=== PATIENT | male | born 1950 | race Caucasian/White ===

== ENCOUNTER → 2017-09-12 | Outpatient (CLI) | payer OTHER, MEDICARE ==
[2017-09-12 09:28] LABS: BASO % 0.6 %; BASO ABS # 0.04 K/uL (0-0.2); COMPLETE YES; EOS % 3.5 %; HEMATOCRIT 44.3 % (42-52); IG% 0.2 %; LYMPH % 34.7 %; LYMPH ABS # 2.29 K/uL (1.2-3.4); MEAN CELL VOLUME 91.5 fL (80-100); MEAN CORPUSCULAR HEMOGLOBIN 29.8 pg (25-34); MEAN CORPUSCULAR HGB CONC 32.5 g/dl (32-36); MEAN PLATELET VOLUME 10.1 fL (7.4-10.4); MONO % 8.2 %; NEUT % 52.8 %; PLATELET COUNT 186 K/uL (130-400); RED BLOOD COUNT 4.84 M/uL (4.7-6.1); WHITE BLOOD COUNT 6.59 K/uL (4.8-10.8)
[2017-09-12 09:40] LABS: ESTIMATED AVERAGE GLUCOSE 120 mg/dl; HA1C FLAG Normal (Normal)
[2017-09-12 09:43] LABS: ALT/SGPT 43 U/L (12-78); AST/SGOT 24 U/L (15-37); BLOOD UREA NITROGEN 18 mg/dl (7-18); CALCIUM 8.8 mg/dl (8.5-10.1); CARBON DIOXIDE 29 mmol/L (21-32); CHLORIDE 104 mmol/L (98-107); CREATININE 1.22 mg/dl (0.60-1.40); GLUCOSE 101 mg/dl (70-99); POTASSIUM 4.4 mmol/L (3.5-5.1); SODIUM 139 mmol/L (136-145)
[2017-09-12 09:46] LABS: ALKALINE PHOSPHATASE 70 U/L (45-117)
== END ==
LOC: C.LABVPSUA 09:09
PROVIDERS: ATTEND Internal Medicine Critical Care Medicine
DX: E11.9 Type 2 diabetes mellitus without complications (principal); N28.9 Disorder of kidney and ureter, unspecified; D64.9 Anemia, unspecified

== ENCOUNTER 2025-04-30 05:55 | Observation (INO) ==
--- NOTE | 2025-04-01 11:22 | PAT Medication Instructions ---
Medication Instructions Date of Service April 01, 2025 Home Medications Medication Instructions Recorded CPAP Machine #1 ea 06/12/19 lisinopril 20 mg tablet 20 mg PO QAM metformin 500 mg tablet 500 mg PO BID atorvastatin 20 mg tablet (Lipitor) 20 mg PO QPM doxycycline hyclate 200 mg tablet,delayed release 200 mg PO BID amlodipine 5 mg tablet 5 mg PO QAM ivermectin 1 % topical cream 1 applic topical QAM STOP taking 24 hours before surgery ivermectin 1 % topical cream 1 applic topical QAM DO NOT take the morning of surgery lisinopril 20 mg tablet 20 mg PO QAM metformin 500 mg tablet 500 mg PO BID Take morning of surgery With a small sip of water, OTHERWISE NOTHING TO EAT OR DRINK AFTER MIDNIGHT: doxycycline hyclate 200 mg tablet,delayed release 200 mg PO BID amlodipine 5 mg tablet 5 mg PO QAM Take evening before surgery metformin 500 mg tablet 500 mg PO BID atorvastatin 20 mg tablet (Lipitor) 20 mg PO QPM doxycycline hyclate 200 mg tablet,delayed release 200 mg PO BID Other Notes If you have any questions please call us at [phone] or [phone] or [phone] or [phone]
--- NOTE | 2025-04-03 09:03 | Anesthesiology Consultation ---
Date of Service April 03, 2025 Assessment & Plan (1) Encounter for pre-operative examination: - Check BSG DOS - Infectious disease screening: Per assessment on 04/03/25- No known recent infectious disease contacts or current infectious disease symptoms. - LBBB on preop EKG. Patient will need preop cardiac evaluation arranged (patient aware/requesting [facility] cardio). Patient otherwise acceptable risk for surgery. Chart Review Chart Review: Patient seen in Pre Admission Testing Teaching & Discussion Pre-Anesthesia Teaching/Discussion Notes: Instructed NPO after midnight before surgery,except medications with 15 cc of water. Medication instructions provided according to the PAT guidelines. History Surgery Operation Date: 04/30/25 07:15 Proposed Procedures p L4-5, L5-S1 Laminectomy - Ryan Amor MD Height/Weight Height: 5 ft 8 in Weight: 147.1 kg Allergies Allergy/AdvReac Type Severity Reaction Status Date / Time No Known Drug Allergies Allergy Unknown Verified 03/29/25 15:38 Medications Home Medications Medication Instructions Recorded Confirmed Last Taken lisinopril 20 mg tablet 20 mg PO QAM 08/17/18 03/29/25 08/25/22 07:30 CPAP Machine #1 ea 06/12/19 03/06/25 Unknown metformin 500 mg tablet 500 mg PO BID 09/27/23 03/29/25 Unknown atorvastatin 20 mg tablet (Lipitor) 20 mg PO QPM 12/06/23 03/29/25 Unknown doxycycline hyclate 200 mg 200 mg PO BID 03/06/25 03/29/25 Unknown tablet,delayed release amlodipine 5 mg tablet 5 mg PO M 03/29/25 03/29/25 Unknown ivermectin 1 % topical cream 1 applic topical [facility] 03/29/25 03/29/25 Unknown Past Medical History Medical History (Updated 04/03/25 @ 12:29 by Martha Andrews) Chronic back pain Diabetes mellitus, type 2 NIDDM H/O vertigo No current/recent issues Hx of gout Hx of spinal stenosis Hx of tinnitus Hypertension Kidney stones Hx, passed on own Lumbar stenosis with neurogenic claudication Hx Sleep apnea CPAP (compliant) Exercise / Class Metabolic Activity III < 4 Walking/Shop/Light housework Past Family History Family History Father Aortic aneurysm of unspecified site, ruptured Diabetes Mother Cancer Other Obstructive sleep apnea Past Surgical History Surgical History H/O sinus surgery 2018 History of adenoidectomy History of arthroscopy (2010) Left knee History of cataract surgery R/L History of cholecystectomy (1987) History of colonoscopy (2016) History of tonsillectomy Hx of myringoplasty (2023) Left ear, paper patch placed Hx of myringotomy (2017) Left ear Past Anesthesia History No Hx of Anesthesia Complications and No Family Hx of Anesthesia Complications History of PONV No Hx of PONV and No Hx of Motion Sickness Social History Smoking Status: Never smoker Do You Dip or Chew Tobacco: No Hx Alcohol Use: No Hx Substance Use: No substance use type: does not use Review of Systems Patient denies chest pain, shortness of breath, fever, chills, cough, wheezing. Physical Exam Vital Signs BP 135/82 P 70 TEMP 98.0 SP02 95%RA RESP 18 Physical Full cervical extension range of motion. Full TMJ range of motion. TMD 3 finger breaths Mallampati Score III Dentition: intact, + crown Lungs: clear throughout to auscultation Cardiac: regular rate and rhythm, no murmurs noted Spine: normal Carotid arteries: negative bruit Extremities: trace LE edema Thick neck Lab Results Anesthesia Preop Results Results Anesthesia Widget: WBC 6.47 K/ul (4.8-10.8) 04/03/25 Hgb 13.3 g/dl (14.0-18.0) L 04/03/25 Hct 40.3 % (42.0-52.0) L 04/03/25 Plt 169 K/uL (130-400) 04/03/25 Na 138 mmol/L (136-145) 04/03/25 K 4.2 mmol/L (3.5-5.1) 04/03/25 Cl 105 mmol/L (98-107) 04/03/25 CO2 26 mmol/L (21-32) 04/03/25 BUN 16 mg/dl (6-23) 04/03/25 Creat 0.98 mg/dl (0.6-1.4) 04/03/25 Glucose Level 129 mg/dl (70-99(Fasting)) H 04/03/25 PT 12.8 Seconds (9.0-12.0) H 04/03/25 PTT 28 Seconds (21-31) 04/03/25 INR 1.2 (0.9-1.1) H 04/03/25 HA1c 6.6 % (4.5-5.6) H 04/03/25 Blood Type A Positive 04/03/25 Antibody Screen NEGATIVE 04/03/25 Testing Electrocardiogram Date: 04/03/25 NSR at 74bpm. LBBB. Chest X-Ray Date: 04/03/25 FINDINGS: Heart size and pulmonary vasculature are normal. No effusion, consolidation, or pneumothorax. Stable few small pulmonary nodules. IMPRESSION: No acute findings. Stress Test Date: 08/10/22 Type: DSE Negative DSE/stress ECG for myocardial ischemia at 95% MPRE. No dobutamine induced chest pain. Rest Echo with normal biventricular systolic function, mild LVH, borderline LAD, trace TR.
[2025-04-30] MEDS: LR 60ML/HR IV SCH (06:31)
[2025-04-30] MEDS: LR 15ML/HR IV SCH (06:31)
[2025-04-30] MEDS: ACETAMINOPHEN 500 MG TAB PO SCH (06:31)
[2025-04-30] MEDS ORDERED: ATROPINE SULFATE 0.1 MG/ML 10ML SYR IV PRN (06:55)
[2025-04-30] MEDS ORDERED: ONDANSETRON INJ 2 MG/ML 2 ML VIAL IV PRN ×2 (06:55→10:42)
[2025-04-30] MEDS ORDERED: DEXAMETHASONE SOD INJ 4 MG/ML VIAL ONE (07:00)
[2025-04-30] MEDS ORDERED: ROCURONIUM BROMIDE 10 MG/ML 5 ML VIAL IV ONE (07:00)
[2025-04-30] MEDS ORDERED: ONDANSETRON INJ 2 MG/ML 2 ML VIAL ONE (07:00)
[2025-04-30] MEDS ORDERED: MIDAZOLAM HCL 1 MG/ML 2ML VIAL ONE (07:00)
[2025-04-30] MEDS ORDERED: LIDOCAINE 2% 2 ML VIAL/AMP(20MG/ML) INFIL ONE (07:00)
[2025-04-30] MEDS ORDERED: PROPOFOL IV EMULSION 10 MG/ML 20 ML VIAL IV ONE ×2 (07:00→07:19)
--- NOTE | 2025-04-30 07:19 | History & Physical Bridge Note ---
Date of Service April 30, 2025 History & Physical Bridge Note I have examined the patient, reviewed the History & Physical and in the interval since the performance of the History & Physical I have noted the following changes of clinical significance: no changes noted
--- NOTE | 2025-04-30 07:21 | History & Physical Report ---
Date of Service April 30, 2025 History of Present Illness Chief Complaint: low back, leg pain Primary Care Provider: Shant Jha MD Patient returns for follow-up, he was evaluated for low back and leg pain bi lateral, more so on the left, he has noted that with the taper dose steroids in the beginning with the higher dose it was helpful for symptoms but fortunately did give him elevated blood pressure and some change in his blood sugars. He is now status post his MRI from February 25 and is here for review and discussion. No new changes regarding exam pain indicated in the same areas as noted before. 2 views lumbar spine AP and lateral views taken at today's office reveal the spine to be unremarkable on the AP view normal alignment, hip joints maintained joint space, he has on lateral view normal lordosis, the only level showing some loss of disc base height and degeneration is the L5-S1 level. Review of MRI images from lumbar spine from [facility] from February 25, 2025, this my separate interpretation, this reveals the discs to be unremarkable at all levels left L5-S1 where there is notable loss of disc base height degenerative changes and Modic changes, there is a slight disc protrusion broad- based across that level. He has no notable findings at L3-4 and above, L4-5 as a combination of a very minimal disc bulge along with some facet arthrosis causing severe stenosis centrally but not to any significant degree foraminally except on the left some moderate narrowing, similar at L5-S1, there is a broad- based disc bulging and facet arthrosis. Impression: Combination of lumbar stenosis L4-5 and L5-S1. Plan: Today I reviewed the images with the patient both her x-rays and the MRI went over these in detail. We reviewed with the patient all the treatment options including continued anti-inflammatories, physical therapy, pain management and potential surgery. For surgery I would recommend a two-level decompression at L4-5 and L5-S1, this would include trying to work on the left foramens to some degree, but also the broad-based disc bulge at L5-S1, and open the channel which I think would help with some limited improvement in both his back pain and his leg pain. I emphasized that I do not think this will take away all his symptoms but it should help with at least a portion of them. As neither of the levels is showing any instability on not recommending any arthrodesis, and I did review the hospital postoperative course, activity levels, management of the incision, potential risk complications including but not exclusive chances of infection, neurologic injury, risk from anesthesia and medical risks, noting to him that with increased weight and diabetes there is a slight increase in terms of chances of infection. I did review the patient would be appropriate for undergoing pain management injections but he declined on this, we will work to get him scheduled. Allergies Allergy/AdvReac Type Severity Reaction Status Date / Time No Known Drug Allergies Allergy Unknown Verified 04/30/25 06:11 Home Medications Medication Instructions Recorded Confirmed Type lisinopril 20 mg tablet 20 mg PO QAM 08/17/18 04/30/25 History CPAP Machine #1 ea 06/12/19 04/10/25 Rx metformin 500 mg tablet 500 mg PO BID 09/27/23 04/30/25 History atorvastatin 20 mg tablet (Lipitor) 20 mg PO QPM 12/06/23 04/30/25 History doxycycline hyclate 200 mg 200 mg PO BID 03/06/25 04/30/25 History tablet,delayed release amlodipine 5 mg tablet 5 mg PO QAM 03/29/25 04/30/25 History ivermectin 1 % topical cream 1 applic topical QAM 03/29/25 04/30/25 History acetaminophen 325 mg tablet 975 mg PO QID PRN Pain 04/30/25 04/30/25 History (Tylenol) Past Med/Surg History Problem List Left bundle branch block Lumbar stenosis with neurogenic claudication Lumbar radiculopathy Disc degeneration, lumbosacral Elevated PSA Type 2 diabetes mellitus Encounter for pre-operative examination Family history of aortic aneurysm Allergic rhinitis due to mold Allergic rhinitis due to animal dander Non-allergic rhinitis Acquired deviated nasal septum Chronic otitis media of left ear Allergic rhinitis Sensorineural hearing loss of both ears Tinnitus, bilateral chronic Mixed hearing loss, bilateral bilateral hearing aids Nocturnal hypoxemia Obstructive sleep apnea Osteoarthritis Spinal stenosis Hypertension Medical History Lumbar stenosis with neurogenic claudication Hx Hx of spinal stenosis Hx of tinnitus Diabetes mellitus, type 2 NIDDM Hx of gout Hypertension Sleep apnea CPAP (compliant) H/O vertigo No current/recent issues Chronic back pain Kidney stones Hx, passed on own Surgical History Hx of myringotomy (2017) Left ear Hx of myringoplasty (2023) Left ear, paper patch placed History of cataract surgery R/L H/O sinus surgery 2018 History of cholecystectomy (1987) History of arthroscopy (2010) Left knee History of colonoscopy (2016) History of tonsillectomy History of adenoidectomy Family History Father Aortic aneurysm of unspecified site, ruptured Diabetes Mother Cancer Other Obstructive sleep apnea Social History Smoking Status: Never smoker Second Hand Exposure: Yes (hx as child); Do You Dip or Chew Tobacco: No; Tobacco Cessation Education Requested by Patient: No Hx Alcohol Use: No Hx Substance Use: No Preferred Language: Frisian Communication Ability: Effective Visual Impairment: No Limitations Compensation Director Required: No Beliefs That Will Affect Care: None marital status: / Current Living Situation: Other Current Living Situation Comment: [facility] How many Children do You have: 3 Other Information That Helps Us Care for You: No Feels Safe at Home: Yes Safety Concerns: Feels Safe At This Time Diet: diabetic during the past year weight has: decreased > 10 lbs Assistive Devices: CPAP and Hearing Aid - Bilateral Review of Systems All systems reviewed & are unremarkable except as noted in HPI & below. Physical Exam . Results & Data Results & Data Laboratory Results . Diagnostic Findings . PG Care Time/CCT Total # of Minutes Spent Total Time Spent with Patient: Total time spent is greater than 50% in coordination of care (as documented) at patient's floor/unit and/or counseling patient: Coding Level of Care Code 90302 INT INP/OBS CARE 1/40MIN
[2025-04-30] MEDS ORDERED: PHENYLEPHRINE HCL 10 MG/ML VIAL ONE (08:00)
[2025-04-30] MEDS ORDERED: PHENYLEPHRINE 100MCG/ML 5ML SYR ONE (08:00)
[2025-04-30] MEDS: ceFAZolin 3000MG 3,000 MG/72.5 ML BAG IV SCH (08:00)
[2025-04-30] MEDS ORDERED: KETAMINE HCL 10MG/ML SYR ONE (08:10)
[2025-04-30] MEDS ORDERED: ACETAMINOPHEN 1000 MG/100 ML IV IV ONE (08:26)
[2025-04-30] MEDS: VANCOMYCIN HCL 1000MG/20ML VIAL ONE (10:07)
[2025-04-30] MEDS: FLOSEAL HEMOSTATIC MATRIX 10ML TOP ONE (10:07)
[2025-04-30] MEDS: BUPIVACAINE/EPINEPHRINE 0.5% MPF 1:200,000 30 ML VIAL ONE (10:08)
[2025-04-30] MEDS: TRANEXAMIC ACID / 0.7% NACL 1000MG/100ML BAG IV ONE (10:15)
[2025-04-30] MEDS ORDERED: KETOROLAC 30 MG/ML VIAL ONE (10:16)
[2025-04-30] MEDS ORDERED: SUGAMMADEX SODIUM 200 MG/2 ML VIAL IV ONE ×2 (10:16→10:23)
--- NOTE | 2025-04-30 10:33 | Post Operative Brief Note ---
PG Immediate Post Op with CF Date of Surgery April 30, 2025 Pre & Post Diagnosis Operation Date: 04/30/25 07:30 Pre-Op Diagnosis: (1) Disc degeneration, lumbosacral (2) Lumbar radiculopathy (3) Low back pain radiating to left lower extremity (4) Lumbar stenosis with neurogenic claudication Post-Op Diagnosis: (1) Disc degeneration, lumbosacral (2) Lumbar radiculopathy (3) Low back pain radiating to left lower extremity (4) Lumbar stenosis with neurogenic claudication I identified the patient and participated in the time-out.: Yes Procedure Operation Date: 04/30/25 07:30 Actual Procedures p L4-L5, L5-S1 Laminectomy(Not Applicable) - Ryan Amor MD Surgeon Ryan Amor MD Industrial Psychologist none Estimated Blood Loss 100 Findings Consistent with Post-Op Diagnosis Specimens Specimen Description: None per surgeon Drains Chris Catheter (16 fr catheter inserted without difficulty draining clear yellow urine )
[2025-04-30] MEDS ORDERED: ACETAMINOPHEN 1,000 MG/100 ML VIAL IV PRN (10:42)
[2025-04-30] MEDS ORDERED: MAGNESIUM HYDROXIDE SUSP 30 ML UDC PO PRN (10:42)
[2025-04-30] MEDS ORDERED: PROMETHAZINE 12.5 MG/50.5 ML BAG IV PRN (10:42)
[2025-04-30] MEDS ORDERED: NALOXONE HCL 0.4 MG/1 ML VIAL/CARP IV PRN (10:42)
[2025-04-30] MEDS ORDERED: DO NOT ADMINISTER PNEUMOCOCCAL VACCINE PRN (10:42)
[2025-04-30] MEDS ORDERED: HYDROmorphone INJ 1 MG/ML SYRINGE IV PRN (10:42)
[2025-04-30] MEDS ORDERED: HYDROmorphone INJ 0.5 MG/0.5 ML SYR IV PRN (10:42)
[2025-04-30] MEDS ORDERED: ONDANSETRON 4 MG OD TAB PO PRN (10:42)
[2025-04-30] MEDS ORDERED: LORazepam 0.5 MG TAB PO PRN (10:42)
[2025-04-30] MEDS ORDERED: FAMOTIDINE 20 MG TAB PO PRN (10:42)
[2025-04-30] MEDS ORDERED: diphenhydrAMINE Capsule 25 MG CAP PO PRN (10:42)
[2025-04-30] MEDS ORDERED: METOCLOPRAMIDE HCL INJ 5 MG/ML 2 ML VIAL IV PRN (10:42)
[2025-04-30] MEDS ORDERED: ALUMINUM/MAGNESIUM SUSP 30 ML UDC PO PRN (10:42)
[2025-04-30] MEDS ORDERED: DO NOT ADMINISTER FLU VACCINE PRN (10:42)
[2025-04-30] MEDS ORDERED: SOD PHOSPHATE/SOD BIPHOSPHATE ENEMA 132 ML BTL PR PRN (10:42)
[2025-04-30] MEDS ORDERED: PHARMACY GLYCEMIC MGMT CONSULT PRN (10:47)
--- NOTE | 2025-04-30 11:00 | Fluoroscopy Report ---
FL lumbar spine 2-3V CLINICAL HISTORY: L4-L5, L5-S1 LAMINECTOMY COMPARISON STUDY: None FLUOROSCOPY TIME: 29 seconds FLUOROSCOPY IMAGES: 4 EXPOSURE DOSE: 45 mGy FINDINGS: Fluoroscopy was provided for lower lumbar surgery. IMPRESSION: Intraoperative fluoroscopy. ACT 112: Negative or not required by law. Electronically signed by: Huber King M.D. 04/30/2025 10:59 AM
[2025-04-30] MEDS: HYDROmorphone INJ 1 MG/ML SYRINGE IV PRN (11:20)
[2025-04-30] MEDS ORDERED: CARBOHYDRATES FOR HYPOGLYCEMIA PO PRN (12:00)
[2025-04-30] MEDS ORDERED: DEXTROSE 50% 50 ML SYRINGE IV PRN (12:00)
[2025-04-30] MEDS ORDERED: GLUCOSE 10 TAB/TUBE PO PRN (12:00)
[2025-04-30] MEDS ORDERED: GLUCAGON FOR INJ 1 MG VIAL SQ PRN (12:00)
[2025-04-30] MEDS ORDERED: GLUCOSE 40% GEL 15 GM TUBE PO PRN (12:00)
--- NOTE | 2025-04-30 12:40 | Anesthesiology Progress Note ---
Date of Service April 30, 2025 Anesthesia Post Procedure Vital Signs Vital Signs: Temp Pulse Pulse Resp BP Pulse Ox O2 Del Method 04/30/25 12:30 36.6 C 87 18 160/80 H 93 Room Air 04/30/25 12:12 86 12 132/84 96 Nasal Cannula 04/30/25 11:55 84 12 141/76 H 96 Nasal Cannula 04/30/25 11:40 36.4 C L 83 12 147/76 H 95 Nasal Cannula 04/30/25 11:30 82 12 129/78 95 Nasal Cannula 04/30/25 11:20 84 14 152/75 H 96 Nasal Cannula 04/30/25 11:10 83 14 134/75 96 Oxymask 04/30/25 11:00 81 13 147/75 H 97 Oxymask 04/30/25 10:50 83 15 153/73 H 97 Oxymask 04/30/25 10:44 36.6 C 87 12 143/58 H 94 Oxymask 04/30/25 06:34 Room Air 04/30/25 06:15 37.1 C 79 22 178/94 H 94 Room Air O2 Flow Rate 04/30/25 12:30 04/30/25 12:12 3 04/30/25 11:55 3 04/30/25 11:40 3 04/30/25 11:30 3 04/30/25 11:20 3 04/30/25 11:10 6 04/30/25 11:00 6 04/30/25 10:50 8 04/30/25 10:44 8 04/30/25 06:34 04/30/25 06:15 Pain Intensity Lower Back: Pain Intensity: 3 Back: Pain Intensity: 4 Transfer of Care Handoff Completed per policy Notes Mental Status: alert / awake / arousable Patient Amnestic to Procedure: Yes Nausea / Vomiting: adequately controlled Pain: adequately controlled Airway Patency, RR, SpO2: stable & adequate BP & HR: stable & adequate Hydration State: stable & adequate Anesthetic Complications: no major complications apparent and Pt Satisfied with anesthetic care
--- NOTE | 2025-04-30 12:59 | Pharmacy Report ---
Pharmacy Glycemic Short Note 2 - Date of Service April 30, 2025 - Glycemic Short BSG Results (Last 24 hours): 04/30/25 04/30/25 04/30/25 06:22 10:48 12:46 POC Glucose 126 H 198 H 194 H OUTPATIENT ANTIDIABETIC REGIMEN: * metformin 1 g PO BIDM HbA1c: 6.6% (04/03/25) ASSESSMENT: * BW is a 74 year old male POD #0 s/p laminectomy * Received 8 mg IV dexamethasone in OR * No ongoing steroids ordered at this time * Preop blood sugar of 126 mg/dL, postop blood sugar of 198 mg/dL PLAN FOR INPATIENT GLYCEMIC CONTROL: * Hold outpatient oral diabetes medications * Basal insulin * Lantus 35 units SC x 1 * Bolus insulin * NovoLog per scale ACHS or Q6hrs while NPO * Goal Range: Low 110 mg/dL - High 140 mg/dL * Correction Factor: 15 mg/dL/unit * Nutritional / Prandial insulin per carb ratio of 1 unit per 5 grams CHO consumed
--- NOTE | 2025-04-30 13:05 | Operative Report ---
PG Post Operative Report Pre & Post Diagnosis Operation Date: 04/30/25 07:30 Pre-Op Diagnosis: (1) Disc degeneration, lumbosacral (2) Lumbar radiculopathy (3) Low back pain radiating to left lower extremity (4) Lumbar stenosis with neurogenic claudication Post-Op Diagnosis: (1) Disc degeneration, lumbosacral (2) Lumbar radiculopathy (3) Low back pain radiating to left lower extremity (4) Lumbar stenosis with neurogenic claudication I identified the patient and participated in the time-out.: Yes Procedure Operation Date: 04/30/25 07:30 Actual Procedures p L4-L5, L5-S1 Laminectomy(Not Applicable) - Ryan Amor MD Surgeon Ryan Amor MD Video Arcade Manager none Estimated Blood Loss 100 Findings Consistent with Post-Op Diagnosis Specimens none Description of Procedure 1. L4-5 posterior lumbar decompression/laminectomy. (25353) 2. L5-S1 posterior lumbar decompression/laminectomy. (03881) Patient was taken to the operating room and after adequate anesthesia was carefully positioned prone on a Jonh frame, carefully checked for positioning. A preprepped was performed of the lumbar region followed by fluoroscopy brought in marking for the approximate location of the incision, prep and drape. A longitudinal incision was then made midline over the L4-5 and L5-S1 levels and then advanced down through the subcutaneous tissues, to either side of the spinous processes and advanced down to the lamina at L4-L5 and S1. Retractors were set, began the procedure with starting at the L5-S1 level with removal of the spinous process, and thinning of the thickened ligamentum flavum, high-speed bur was then utilized perform bilateral hemilaminectomies, partial medial facetectomies. The remainder of the ligamentum flavum was removed, the facets were undercut and the decompression was completed at this level for the L4-5 and S1 nerve roots. Moving to the L4-5 level, similar procedure was performed with bilateral decompressions via bilateral hemilaminectomies, partial medial facetectomies and foraminotomies, decompression the exiting L5 and L4 nerve roots. Upon completion both areas were decompressed, there is no evidence of any CSF leakage. Floseal was utilized for providing some hemostasis, along with bone wax. The operative site was irrigated with normal saline solution followed by placement of vancomycin powder, closure in 2 layers of 0 Vicryl sutures reattaching the supraspinous ligament were available, an additional layer of 2-0 Vicryl sutures and then jocelyne for the skin. Sterile dressing was applied, the patient tolerated the procedure well was taken to recovery room in satisfactory condition. I attest to the content of the Intraoperative Record and any orders documented therein. Any exceptions are noted below.
--- NOTE | 2025-04-30 13:09 | Hospitalist Consultation ---
Date of Consultation April 30, 2025 Assessment & Plan (1) Hypertension: (2) Type 2 diabetes mellitus: (3) Obstructive sleep apnea: (4) Lumbar stenosis with neurogenic claudication: Plan This patient is a 74-year-old male with a history of DM2, KIRILL on CPAP, HTN, OA, LBBB with recent normal Lexiscan stress test, kidney stones, elevated PSA, BPH, cough variant asthma, morbid obesity, rosacea, and lower back pain with lumbar radiculopathy who was admitted to the hospital for recovery postop from a L4-L5, L5-S1 laminectomy. #HTN/chronic LBBB/HLD-no acute issues, BPs are mildly elevated postoperatively perhaps secondary to pain. Found to have LBBB on preoperative ECG in 03/2025. Was seen by cardiology and had an echocardiogram which showed - Continue home amlodipine, and will hold home lisinopril until at least POD #1 to ensure renal function and BPs are stable - Follow BMP in the morning - Continue home atorvastatin - Monitor BPs #DM2, morbid obesity BMI 49.9-blood sugars are well-controlled and recent HgbA1c 6.6% in 03/2025. He only takes metformin at home - Pharmacy glycemic control consult was placed by primary surgery team and will manage his basal bolus insulin - Plan to restart metformin on discharge #KIRILL on CPAP/asthma-no acute issues - He can use his own CPAP or I will place an order for CPAP at 12 cm H2O as he does at home - No current wheezing and does not use any inhalers at home #History of kidney stone/elevated PSA/BPH-follows with urology, no acute issues - Monitor for urinary retention postoperatively #Rosacea-no acute issues -continue doxy 50 mg po bid -hold home ivermectin topica as doubt this is on our formulary #Lumbar radiculopathy/s/p lumbar laminectomy-postop management as per orthopedic surgery - He continues on a bowel regimen with senna/docusate and MiraLAX every 6 hours - Pain control is ordered with oxycodone and IV Dilaudid as well as acetaminophen as needed DVT prophylaxis-SCDs Disposition-continued stay medical/surgical unit, hospitalist service will follow along History of Present Illness Reason for Consultation: Postop medical management Requesting Physician: Ryan Amor MD Attending Physician: Ryan Amor MD History of Present Illness This patient is a 74-year-old male with a history of DM2, KIRILL on CPAP, HTN, OA, LBBB with recent normal Lexiscan stress test, kidney stones, elevated PSA, BPH, cough variant asthma, morbid obesity, rosacea, and lower back pain with lumbar radiculopathy who was admitted to the hospital for recovery postop from a L4-L5, L5-S1 laminectomy. Pt feels well post-op. He has some lower back pain, no LE pain. Narayan nausea, CP, SOB, abd pain. Feels like he needs to urinate. Allergies Allergy/AdvReac Type Severity Reaction Status Date / Time No Known Drug Allergies Allergy Unknown Verified 04/30/25 06:11 Home Medications Medication Instructions Recorded Confirmed Type lisinopril 20 mg tablet 20 mg PO QAM 08/17/18 04/30/25 History CPAP Machine #1 ea 06/12/19 04/10/25 Rx metformin 500 mg tablet 500 mg PO BID 09/27/23 04/30/25 History atorvastatin 20 mg tablet (Lipitor) 20 mg PO QPM 12/06/23 04/30/25 History amlodipine 5 mg tablet 5 mg PO QAM 03/29/25 04/30/25 History ivermectin 1 % topical cream 1 applic topical QAM 03/29/25 04/30/25 History acetaminophen 325 mg tablet 975 mg PO QID PRN Pain 04/30/25 04/30/25 History (Tylenol) doxycycline hyclate 50 mg capsule 50 mg PO BID 04/30/25 04/30/25 History Patient History Medical History (Updated 04/30/25 @ 14:06 by Elsa Jauregui MD) Rosacea Lumbar stenosis with neurogenic claudication Hx Hx of spinal stenosis Hx of tinnitus Diabetes mellitus, type 2 NIDDM Hx of gout Hypertension Sleep apnea CPAP (compliant) H/O vertigo No current/recent issues Chronic back pain Kidney stones Hx, passed on own Surgical History Hx of myringotomy (2017) Left ear Hx of myringoplasty (2023) Left ear, paper patch placed History of cataract surgery R/L H/O sinus surgery 2018 History of cholecystectomy (1987) History of arthroscopy (2010) Left knee History of colonoscopy (2017) History of tonsillectomy History of adenoidectomy Family History Father Aortic aneurysm of unspecified site, ruptured Diabetes Mother Cancer Other Obstructive sleep apnea Social History Smoking Status: Never smoker Second Hand Exposure: Yes (hx as child); Do You Dip or Chew Tobacco: No; Tobacco Cessation Education Requested by Patient: No Hx Alcohol Use: No Hx Substance Use: No Preferred Language: Irish Communication Ability: Effective Visual Impairment: No Limitations Deboning Team Leader Required: No Beliefs That Will Affect Care: None marital status: / Current Living Situation: Other Current Living Situation Comment: [facility] How many Children do You have: 3 Other Information That Helps Us Care for You: No Feels Safe at Home: Yes Safety Concerns: Feels Safe At This Time Diet: diabetic during the past year weight has: decreased > 10 lbs Assistive Devices: CPAP and Hearing Aid - Bilateral Review of Systems Review of Systems: All systems reviewed & are unremarkable except as noted in HPI & below Physical Exam Constitutional: WD/WN, vitals as above Eyes: PERRL, conjunctivae normal, anicteric sclerae ENMT: external ear and nose normal, oropharynx normal Neck: trachea midline, no thyromegaly Respiratory: normal respiratory effort, lungs clear to auscultation Cardiovascular: RRR, no murmur, no edema Chest (Breasts): Chest: normal inspection of chest Gastrointestinal (Abdomen): normal bowel sounds, soft, nontender, no hepatosplenomegaly Musculoskeletal: Extremities: extremities normal to inspection; no cyanosis and no clubbing Skin: no rashes, warm and dry Neurologic: moves all extremities and awake; no focal motor deficits Psychiatric: A+Ox3, euthymic affect Lymphatic: no lymphedema Results & Data Results & Data Vital Signs (Past 12 Hours) Vital Signs Temp Pulse Pulse Resp BP BP Pulse Ox 04/30/25 13:00 36.6 C 87 18 153/81 H 96 04/30/25 12:30 36.6 C 87 18 160/80 H 93 04/30/25 12:12 86 12 132/84 96 04/30/25 11:55 84 12 141/76 H 96 04/30/25 11:40 36.4 C L 83 12 147/76 H 95 04/30/25 11:30 82 12 129/78 95 04/30/25 11:20 84 14 152/75 H 96 04/30/25 11:10 83 14 134/75 96 04/30/25 11:00 81 13 147/75 H 97 04/30/25 10:50 83 15 153/73 H 97 04/30/25 10:44 36.6 C 87 12 143/58 H 94 04/30/25 06:34 04/30/25 06:15 37.1 C 79 22 178/94 H 94 O2 Del Method O2 Flow Rate 04/30/25 13:00 Nasal Cannula 2 04/30/25 12:30 Room Air 04/30/25 12:12 Nasal Cannula 3 04/30/25 11:55 Nasal Cannula 3 04/30/25 11:40 Nasal Cannula 3 04/30/25 11:30 Nasal Cannula 3 04/30/25 11:20 Nasal Cannula 3 04/30/25 11:10 Oxymask 6 04/30/25 11:00 Oxymask 6 04/30/25 10:50 Oxymask 8 04/30/25 10:44 Oxymask 8 04/30/25 06:34 Room Air 04/30/25 06:15 Room Air Laboratory Results Preoperative CBC, BMP, HgbA1c reviewed Diagnostic Findings Preoperative CXR, echocardiogram, and recent myocardial perfusion scan reviewed ECG Additional Comments: Preoperative ECG on 04/03/2025 at 9:22 AM with normal sinus rhythm, rate 74, LBBB new from previous PG Care Time/CCT Total # of Minutes Spent Total Time Spent with Patient: Total time spent is greater than 50% in coordination of care (as documented) at patient's floor/unit and/or counseling patient: Coding Level of Care Code 69064 IN/OBS CONSULT LVL 3,45M Diagnoses Hypertension I10 Type 2 diabetes mellitus E11.9 Obstructive sleep apnea G47.33 Lumbar stenosis with neurogenic claudication M48.062
[2025-04-30] MEDS: LANTUS PER UNIT CHARGE SC ONE (13:57)
[2025-04-30] MEDS: INSULIN ASPART PER UNIT CHARGE SC SCH (13:58)
[2025-04-30] MEDS ORDERED: ACETAMINOPHEN 80 MG CHEWABLE TAB PO PRN (17:15)
[2025-04-30] MEDS: ACETAMINOPHEN 500 MG TAB PO PRN (19:17)
[2025-04-30] MEDS: DOCUSATE SODIUM/SENNA 50/8.6MG TAB PO SCH (21:28)
[2025-04-30] MEDS: DOXYCYCLINE HYCLATE 50 MG CAP PO SCH (21:29)
[2025-04-30] MEDS: ATORVASTATIN 20 MG TAB PO SCH (21:29)
[2025-05-01] MEDS: POLYETHYLENE (MIRALAX) 17 GM PACK PO SCH (05:52)
[2025-05-01] MEDS: LANTUS PER UNIT CHARGE SC SCH (08:36)
--- NOTE | 2025-05-01 09:31 | Pharmacy Report ---
Pharmacy Glycemic Short Note 2 - Date of Service May 01, 2025 - Glycemic Short BSG Results (Last 24 hours): 04/30/25 04/30/25 04/30/25 10:48 12:46 16:31 POC Glucose 198 H 194 H 194 H 04/30/25 05/01/25 20:30 07:24 POC Glucose 197 H 143 H OUTPATIENT ANTIDIABETIC REGIMEN: * metformin 1 g PO BIDM HbA1c: 6.6% (04/03/25) ASSESSMENT: 05/01/25: * Blood sugars elevated postoperatively (ranging 194-198 mg/dL) * Received 69 units of insulin (~50/50 basal/bolus split) * No ongoing steroids ordered - will decrease basal today * Maintain aggressive Novolog parameters this AM and then loosen later today 04/30/25: * BW is a 74 year old male POD #0 s/p laminectomy * Received 8 mg IV dexamethasone in OR * No ongoing steroids ordered at this time * Preop blood sugar of 126 mg/dL, postop blood sugar of 198 mg/dL PLAN FOR INPATIENT GLYCEMIC CONTROL: * Hold outpatient oral diabetes medications * Basal insulin * Lantus 15 units SC daily * Bolus insulin * NovoLog per scale ACHS or Q6hrs while NPO * Goal Range: Low 110 mg/dL - High 140 mg/dL * Correction Factor: 25 mg/dL/unit * Nutritional / Prandial insulin per carb ratio of 1 unit per 8 grams CHO consumed
[2025-05-01 11:15] LABS: Hematocrit (blood only) 38.3 % (42.0-52.0); Hemoglobin 12.7 g/dl (14.0-18.0); Immature Granulocytes # (auto) 0.05 K/uL (0.01-0.20); Immature Granulocytes % (auto) 0.4 %; Mean Corpuscular Hemoglobin 29.1 pg (25.0-34.0); Mean Corpuscular Volume 87.8 fL (80.0-100.0); Platelet Count 219 K/uL (130-400); RDW Standard Deviation 47.7 fL (36.4-46.3); Red Blood Count 4.36 M/uL (4.70-6.10); White Blood Count 11.63 K/ul (4.8-10.8)
[2025-05-01 11:27] LABS: Anion Gap 7.0 (3-11); Blood Urea Nitrogen 18.0 mg/dl (6-23); Calcium 8.8 mg/dl (8.6-10.3); Carbon Dioxide 25.0 mmol/L (21-32); Chloride 102.0 mmol/L (98-107); Creatinine Clr Calc Pharmacy 96.6 ml/min; Glucose 138.0 mg/dl (70-99(Fasting)); Potassium 3.9 mmol/L (3.5-5.1); Sodium 134.0 mmol/L (136-145)
[2025-05-01 14:31] VITALS: RESP 18
--- NOTE | 2025-05-01 14:56 | Hospitalist Progress Note ---
Date of Service May 01, 2025 Assessment & Plan (1) Hypertension: (2) Type 2 diabetes mellitus: (3) Obstructive sleep apnea: (4) Lumbar stenosis with neurogenic claudication: Plan This patient is a 74-year-old male with a history of DM2, KIRILL on CPAP, HTN, OA, LBBB with recent normal Lexiscan stress test, kidney stones, elevated PSA, BPH, cough variant asthma, morbid obesity, rosacea, and lower back pain with lumbar radiculopathy who was admitted to the hospital for recovery postop from a L4-L5, L5-S1 laminectomy. #HTN/chronic LBBB/HLD-no acute issues, BPs are mildly elevated postoperatively perhaps secondary to pain. Found to have LBBB on preoperative ECG in 03/2025. Was seen by cardiology and had an echocardiogram which showed - Continue home amlodipine, and will resume lisinopril - Reviewed BMP today and it is unremarkable, Cr 0.9 - Continue home atorvastatin - Monitor BPs #DM2, morbid obesity BMI 49.9-blood sugars are well-controlled and recent HgbA1c 6.6% in 03/2025. He only takes metformin at home - Pharmacy glycemic control consult was placed by primary surgery team and will manage his basal bolus insulin - Plan to restart metformin on discharge #KIRILL on CPAP/asthma-no acute issues - Using home CPAP - No current wheezing and does not use any inhalers at home #History of kidney stone/elevated PSA/BPH-follows with urology, no acute issues - Monitor for urinary retention postoperatively - poole out 04/30 and voiding spontaneously #Rosacea-no acute issues -continue doxy 50 mg po bid -hold home ivermectin topica as not on our formulary #Lumbar radiculopathy/s/p lumbar laminectomy-postop management as per orthopedic surgery - He continues on a bowel regimen with senna/docusate and MiraLAX every 6 hours - Pain control is ordered with oxycodone and IV Dilaudid as well as acetaminophen as needed DVT prophylaxis-SCDs Disposition-continued stay medical/surgical unit, hospitalist service will follow along, anticipate home 1-2 days depending on mobility Admission and Anticipated Discharge Date Admission Date: April 30, 2025 Subjective Up in chair and feels ok. Pain adequately controlled and has been able to get up and stand/transfer No shortness of breath or chest pain Eating and drinking well Poole removed yesterday, voiding spontaneously Physical Exam 2 Physical Exam: Last 24h vitals reviewed GEN: no acute distress, sitting up in chair HEENT: pupils equal, sclerae anicteric, moist MM RESP: normal WOB, CTAB CV: reg no mrg ABD: soft/nt/nd +BT : no poole SKIN: warm and dry, no generalized rashes, rosacea on nose and cheeks Lumbar incision is dressed NEURO: AOx person, place, and situation. Face symmetric, speech normal, moves 4 ext spontaneously and equally Results & Data Results & Data Vital Signs (Past 12 Hours) Vital Signs Temp Pulse Pulse Resp BP Pulse Ox O2 Del Method 05/01/25 14:30 36.8 C 79 18 137/79 97 Room Air 05/01/25 11:22 36.8 C 73 19 141/84 H 95 Room Air 05/01/25 07:35 36.8 C 74 19 145/81 H 96 Room Air 05/01/25 07:16 Room Air 05/01/25 03:14 36.6 C 77 18 159/84 H 95 Room Air Laboratory Results 05/01/25 10:42 05/01/25 10:42 PG Care Time/CCT Total # of Minutes Spent Total Time Spent with Patient: Total time spent is greater than 50% in coordination of care (as documented) at patient's floor/unit and/or counseling patient: Coding Level of Care Code 23535 SUB INP/OBS CARE 2/35MIN Diagnoses Hypertension I10 Type 2 diabetes mellitus E11.9 Obstructive sleep apnea G47.33 Lumbar stenosis with neurogenic claudication M48.062
[2025-05-01 19:15] VITALS: O2SAT 94
[2025-05-02] MEDS: POLYETHYLENE (MIRALAX) 17 GM PACK PO ONE (02:26)
[2025-05-02 07:26] VITALS: BP 150/85; PULSE 79; TEMP 98.8
--- NOTE | 2025-05-02 08:07 | Orthopedic Progress Note ---
Date of Service May 02, 2025 Subjective Patient seen and examined, he notes some incisional pain but overall continued improvement in lower extremities. Incision site is unremarkable, no drainage present from yesterday's dressing. Impression: Postoperative day 2 from posterior lumbar decompression L4-5 L5-S1. In talking with the patient, he is interested in discharge later today if cleared by medicine and physical therapy. Instructions were given regarding care of the operative site and emphasis on patient ambulation, follow-up in 2 weeks. Review of Systems All systems reviewed & are unremarkable except as noted in HPI & below. Physical Exam . Results & Data Results & Data Laboratory Results . Diagnostic Findings . PG Care Time/CCT Total # of Minutes Spent Total Time Spent with Patient: Total time spent is greater than 50% in coordination of care (as documented) at patient's floor/unit and/or counseling patient: Coding
--- NOTE | 2025-05-02 16:14 | Hospitalist Progress Note ---
Date of Service May 02, 2025 Assessment & Plan (1) Hypertension: (2) Type 2 diabetes mellitus: (3) Obstructive sleep apnea: (4) Lumbar stenosis with neurogenic claudication: Plan This patient is a 74-year-old male with a history of DM2, KIRILL on CPAP, HTN, OA, LBBB with recent normal Lexiscan stress test, kidney stones, elevated PSA, BPH, cough variant asthma, morbid obesity, rosacea, and lower back pain with lumbar radiculopathy who was admitted to the hospital for recovery postop from a L4-L5, L5-S1 laminectomy. #Postoperative acute blood loss anemia -Hg adequate -advised iron supp q48h for few weeks and follow up in primary care for CBC, iron panel if necessary -discussed plan with his son at bedside #HTN/chronic LBBB/HLD-no acute issues, BPs were mildly elevated postoperatively secondary to pain, improved Found to have LBBB on preoperative ECG in 03/2025. Was seen by cardiology and had an echocardiogram which showed - Continue home amlodipine, lisinopril, atorvastatin - renal function remained stable #DM2, morbid obesity BMI 49.9-blood sugars are well-controlled and recent HgbA1c 6.6% in 03/2025. He only takes metformin at home -restart metformin on discharge #KIRILL on CPAP/asthma-no acute issues - Using home CPAP #History of kidney stone/elevated PSA/BPH-follows with urology, no acute issues - Monitor for urinary retention postoperatively - poole out 04/30 and voiding spontaneously #Rosacea-no acute issues -continue doxy 50 mg po bid ivermectin topica #Lumbar radiculopathy/s/p lumbar laminectomy-postop management as per orthopedic surgery - moved bowels - home today per Dr. [place] for [facility] from my perspective, discussed with RN DVT prophylaxis- ASA bid Admission and Anticipated Discharge Date Admission Date: April 30, 2025 Subjective Doing well, had BM, ambulatory, incisional back pain well controlled, no radicular pain Physical Exam Physical Exam: Last 24h vitals reviewed GEN: up in chair, son present exam unchanged 05/02 HEENT: pupils equal, sclerae anicteric, moist MM RESP: normal WOB, CTAB CV: reg no mrg ABD: soft/nt/nd +BT : no poole SKIN: warm and dry, no generalized rashes, rosacea on nose and cheeks Lumbar incision is dressed NEURO: AOx person, place, and situation. Face symmetric, speech normal, moves 4 ext spontaneously and equally Results & Data Results & Data Vital Signs (Past 12 Hours) Vital Signs Temp Pulse Resp BP Pulse Ox O2 Del Method 05/02/25 07:26 37.1 C 79 18 150/85 H 94 Room Air Laboratory Results Hg 15-->12.7 PG Care Time/CCT Total # of Minutes Spent Total Time Spent with Patient: Total time spent is greater than 50% in coordination of care (as documented) at patient's floor/unit and/or counseling patient: Coding Level of Care Code 92886 SUB INP/OBS CARE 2/35MIN Diagnoses Hypertension I10 Type 2 diabetes mellitus E11.9 Obstructive sleep apnea G47.33 Lumbar stenosis with neurogenic claudication M48.062
== END 2025-05-02 12:14 | disposition home or self-care (01) ==
LOC: ASU 05:55 → 3N 05:55